=== PATIENT | female | born 1980 | race African-American/Black ===

== ENCOUNTER 2020-06-05 06:16 | Emergency (ER) | payer OTHER ==
--- OUTSIDE RECORDS SUMMARY | 2020-06-05 06:49 | XMS ---
:1980 Author Organization [facility] Support Name Relationship Address Phone UE Unavailable Unavailable Unavailable ROSARIOJAVON ZHOU PARTNER [address] [address] ADAIR MEDINA AUNT [address] [place] [address] Re-disclosure Warning The records that you are about to access may contain information from federally- assisted alcohol or drug abuse programs. If such information is present, then the following federally mandated warning applies: This information has been disclosed to you from records protected by federal confidentiality rules (42 CFR part 2). The federal rules prohibit you from making any further disclosure of this information unless further disclosure is expressly permitted by the written consent of the person to whom it pertains or as otherwise permitted by 42 CFR part 2. A general authorization for the release of medical or other information is NOT sufficient for this purpose. The Federal rules restrict any use of the information to criminally investigate or prosecute any alcohol or drug abuse patient.The records that you are about to access may contain highly sensitive health information, the redisclosure of which is protected by Article 27-F of the [facility] Public Health law. If you continue you may haveaccess to information: Regarding HIV / AIDS; Provided by facilities licensed or operated by the [facility] Office of Mental Health; or Provided by the [facility] Office for People With Developmental Disabilities. If such information is present, then the following [facility] mandated warning applies: This information has been disclosed to you from confidential records which are protected by state law. State law prohibits you from making any further disclosure of this information without the specific written consent of the person to whom it pertains, or as otherwise permitted by law. Any unauthorized further disclosure in violation of state law may result in a fine or longterm sentence or both. A general authorization for the release of medical or other information is NOT sufficient authorization for further disclosure. Insurance Providers Payer name Policy type Policy ID Covered Covered republican's Policy P brianna / Coverage republican ID relationship to Joseph Inf ormation type joseph MEDICAID [id number] SP [id number] [facility] [id number]
[2020-06-05 06:50] VITALS: TEMP 99.1; BMI 31.9
[2020-06-05] MEDS ORDERED: ACETAMINOPHEN 325 MG TABLET (FP) PO ONE (07:32)
--- NOTE | 2020-06-05 07:46 | PDOC ---
History of Present Illness - General Chief Complaint: Blood Pressure Problem Stated Complaint: BLOOD PRESSURE PROBLEM History Source: Patient Exam Limitations: No Limitations - History of Present Illness Initial Comments: Pt is a 40 yo F, with PMH of HTN (amlodipine 10 mg), hypothyroidism, who is presenting with complaints of high BP x3 days. Pt states she took her BP at home, which was much higher than her usual (up to 170 systolic). Pt states she has also had intermittent light-headedness, substernal non-radiating chest presssure, and urinary frequency. Pt states she feels these symptoms come when "my blood pressure is high". Pt has been quarantining at home with her 3 young sons, and feels more stress than usual. Pt denies any SI/HI or feeling like she cannot perform her ADLs. Pt denies any recent fevers/chills, congestion, rhinorrhea, headache, vision changes, syncope, palpitations, SOB, n ausea/vomiting, abdominal pain, dysuria/hematuria, diarrhea/constipation, or leg swelling. Allergies: NKDA PCP: Jamie [facility] physician Social: Pt denies any cigarette, alcohol, or drug use. Pt denies any recent travel or sick contacts. Surgical: no relevant history. Family: no relevant history. 06/05/20 08:29 06/05/20 08:45 Past History - Travel History Traveled outside of the country in the last 30 days: No Close contact w/someone who was outside of country & ill: No - Medical History Allergies/Adverse Reactions: Allergies Allergy/AdvReac Type Severity Reaction Status Date / Time aspirin Allergy Intermediate Rash Verified 06/05/20 08:16 Home Medications: Ambulatory Orders Amlodipine Besylate [Norvasc -] 10 mg PO DAILY 06/05/20 Ibuprofen [Motrin -] 600 mg PO PRN 06/05/20 Levothyroxine Sodium [Unithroid] 100 mcg PO DAILY 06/05/20 Asthma: No Cancer: No Cardiac Disorders: No Diabetes: No HTN: No Seizures: No Thyroid Disease: No - Reproductive History Is Patient Now?: No - Psycho-Social/Smoking History Smoking History: Never smoked Information on smoking cessation initiated: No - Substance Abuse Hx (Audit-C & DAST Scrn) How often the patient has a drink containing alcohol: Never Score: In Men: 4 or > Positive; In Women: 3 or > Positive: 0 Screen Result (Pos requires Nsg. Audit-10AR): Negative In the last yr the pt used illegal drug/Rx for NonMed reason: No Score: Yes response is considered Positive: 0 Screen Result (Positive result requires Nsg. DAST-10): Negative Review of Systems - Review of Systems Able to Perform ROS?: Yes Is the patient limited Salvadorean proficient: No Constitutional: Yes: Weight Stable. No: Chills, Diaphoresis, Fever, Loss of Appetite, Malaise, Weakness HEENTM: No: Recent change in vision, Nose Congestion, Throat Pain, Throat Swelling, Difficulty Swallowing Respiratory: No: Cough, Orthopnea, Shortness of Breath Cardiac (ROS): Yes: Chest Pain, Lightheadedness. No: Edema, Irregular Heart Rate, Palpitations, Syncope, Chest Tightness ABD/GI: No: Constipated, Diarrhea, Nausea, Poor Appetite, Poor Fluid Intake, Vomiting : Yes: Frequency. No: Burning, Dysuria, Flank Pain, Hematuria, Pain, Urgency Musculoskeletal: No: Back Pain, Muscle Pain, Muscle Weakness Integumentary: No: Rash Neurological: No: Headache, Numbness, Paresthesia, Seizure, Weakness, Unsteady Gait, Dizziness Psychiatric: No: Sleep Pattern Change, Change in Appetite Endocrine: No: Increased Urine, Change in Weight Hematologic/Lymphatic: No: Anemia, Blood Clots, Easy Bleeding, Easy Bruising All Other Systems: Reviewed and Negative *Physical Exam - Vital Signs Last Vital Signs Temp Pulse Resp BP Pulse Ox 99.1 F 101 H 18 141/98 100 06/05/20 06:36 06/05/20 06:36 06/05/20 06:36 06/05/20 06:36 06/05/20 06:36 - Physical Exam Vitals stable (HTN improved on my exam), pt afebrile. Pt in NAD, overweight body habitus. Pt alert and oriented x3. slat grader generally intact, muscular strength and sensation intact. No midline spinal tenderness, step-offs, or crepitus. Head normocephalic, atraumatic. Eyes PERRLA, EOMI. Oropharynx without erythema or exudates, no LAD b/l. No nasal congestion. Hearing intact. Clear heart sounds, S1/S2, no JVD, b/l pedal edema, or heart murmur. Clear lung sounds, no respiratory distress, wheezes, crackles, or accessory muscle use. No abdominal or CVA tenderness to palpation, no rebound, no guarding. Abdomen soft, non-distended, and with normoactive bowel sounds. Skin without jaundice or rash. 06/05/20 08:42 ED Treatment Course - LABORATORY CBC & Chemistry Diagram: 06/05/20 07:45 06/05/20 07:45 - RADIOLOGY Radiology Studies Ordered: Category Date Time Status CHEST PA & LAT [RAD] Stat Radiology 06/05/20 07:32 Ordered Medical Decision Making - Medical Decision Making Pt was seen at bedside, also will be seen by attending Dr. Campos. Pt presenting with hypertension from baseline, associated with chest pressure and light-headedness. Will evaluate for thyroid dysfunction, electrolyte abnormalities, ACS. Chest pain resolved at time of exam. Provided 650 mg PO tylenol for improvement of discomfort. Will continue to reassess pt and monitor for symptomatic improvement. ECG: NSR, intervals WNL (HR 80, AL 164, QRS 84, QTc 475). No TWIs or significant ST segment changes. No significant changes from prior ECG. 06/05/20 08:44 H/H, TSH, troponin WNL K 3.2, provided 40 mg PO Kdur Provided f/u appointment with clinic PCP. Strict return precautions provided with pt understanding. 06/05/20 09:32 Discharge - Discharge Information Problems reviewed: Yes Clinical Impression/Diagnosis: Distal paresthesia, Light headed Hypertension Qualifiers: Hypertension type: unspecified Qualified Code(s): I10 - Essential (primary) hypertension Condition: Good Disposition: HOME - Admission No - Follow up/Referral Referrals: [facility] [place] [Provider Group] - Patient Discharge Instructions Patient Printed Discharge Instructions: DI for High Blood Pressure, How to Monitor Your Blood Pressure at Home Additional Instructions: You were seen in the ER today for high blood pressure. The results of your labs and imaging today normal, except for a low potassium (3.4) which we provided in the ER. Please follow-up with your primary care doctor within 1-2 days to discuss your visit and make sure your symptoms have improved. We have also provided you referral information for our clinic. Please return to the ER if you have any worsening pain, development of fevers or chills, loss of consciousness, inability to tolerate food or fluids, or any other concerns. - Post Discharge Activity
[2020-06-05] MEDS ORDERED: ACETAMINOPHEN 325 MG TABLET (FP) ONE (08:08)
[2020-06-05 08:34] LABS: BASO % 0.7 % (0-2.0); EOS % 2.1 % (0-4.5); HEMATOCRIT 38.6 % (32.4-45.2); HEMOGLOBIN 12.9 GM/dL (10.7-15.3); LYMPH % 39.9 % (8-40); MCH 30.2 pg (25.7-33.7); MCHC 33.3 g/dl (32.0-36.0); MEAN CELL VOLUME 90.8 fl (80-96); MEAN PLT VOLUME 8.3 fl (7.5-11.1); MONO % 9.8 % (3.8-10.2); NEUT % 47.5 % (42.8-82.8); PLATELET COUNT 195 K/MM3 (134-434); RBC 4.25 M/mm3 (3.60-5.2); RDW 12.4 % (11.6-15.6); WHITE BLOOD COUNT 3.2 K/mm3 (4.0-10.0)
[2020-06-05 08:55] LABS: PH,URINE >= 9.0 (5.0-8.0); URINE APPEARANCE CLEAR; URINE BILIRUBIN NEGATIVE (NEGATIVE); URINE COLOR YELLOW; URINE GLUCOSE (UA) NEGATIVE (NEGATIVE); URINE KETONE NEGATIVE (NEGATIVE); URINE LEUK ESTERASE NEGATIVE (NEGATIVE); URINE NITRITE NEGATIVE (NEGATIVE); URINE PROTEIN NEGATIVE (NEGATIVE); URINE UROBILINOGEN 0.2 mg/dL (0.2-1.0)
[2020-06-05 09:22] LABS: ALBUMIN 3.9 g/dl (3.4-5.0); ALK PHOS 67 U/L (45-117); ANION GAP 4 MMOL/L (8-16); BILIRUBIN,TOTAL 0.7 mg/dL (0.2-1); BLOOD UREA NITROGEN 6.2 mg/dL (7-18); CALCIUM 8.9 mg/dL (8.5-10.1); CHLORIDE 105 mmol/L (98-107); CO2 29 mmol/L (21-32); CREATININE 0.7 mg/dL (0.55-1.3); GLUCOSE,RANDOM 95 mg/dL (74-106); POTASSIUM 3.4 mmol/L (3.5-5.1); SGOT/AST 14 U/L (15-37); SGPT/ALT 16 U/L (13-61); SODIUM 139 mmol/L (136-145); TOT PROT 8.8 g/dl (6.4-8.2)
[2020-06-05] MEDS ORDERED: POTASSIUM CHLORIDE TABS 20 MEQ TABLET.ER (FP) PO ONE ×2 (09:23→09:26)
--- NOTE | 2020-06-05 09:28 | PDOC ---
Attending Attestation - Resident Resident Name: VicentaMikayla - ED Attending Attestation I have performed the following: I have examined & evaluated the patient, The case was reviewed & discussed with the resident, I agree w/resident's findings & plan - HPI HPI: 06/05/20 09:23 40-year-old female with history of well-controlled hypertension presents with nonspecific symptoms since yesterday. Patient reports the primary reason for the ED visit is a tingling sensation in her chest/epigastric area, comes and goes randomly without any associated shortness of breath/lightheadedness/nausea/palpitations. No history of exertional chest pain or limitations, no recent infectious complaints, felt generally weak overnight and had another tingling sensation in her chest this morning so she presents for evaluation. No smoking history, never had stress test, no family or personal history of DVT/PE, no other complaints. - Physicial Exam PE: 06/05/20 09:24 Vital signs are within normal limits, temp 99.1, O2 sat normal Well-appearing seated comfortably in stretcher speaking full sentences Oropharynx is clear Heart is regular, lungs are clear Abdomen benign without epigastric tenderness No edema or calf tenderness - Medical Decision Making 06/05/20 09:24 40-year-old female with nonspecific symptoms of generalized weakness and chest tingling, atypical for ACS or PE, vital signs are normal. Question metabolic versus infectious, viral etiology? Stressors at home, but no acute psych issues. Labs, urinalysis EKG, chest x-ray Disposition accordingly Heart Score/ECG Review #1 ECG reviewed & interpreted by me at: 07:42 General ECG Interpretation: Sinus Rhythm, Normal Rate (80), Normal Intervals (qtc 475), No acute ischemic changes Discharge - Discharge Information Problems reviewed: Yes Clinical Impression/Diagnosis: Palpitation Condition: Fair - Follow up/Referral - Patient Discharge Instructions - Post Discharge Activity
[2020-06-05 09:52] VITALS: BP 133/96; PULSE 90
--- NOTE | 2020-06-05 09:54 | EKG ---
Test Reason : Blood Pressure : / mmHG Vent. Rate : 080 BPM Atrial Rate : 080 BPM P-R Int : 164 ms QRS Dur : 084 ms QT Int : 412 ms P-R-T Axes : 054 022 010 degrees QTc Int : 475 ms NORMAL SINUS RHYTHM NORMAL ECG NO PREVIOUS ECGS AVAILABLE Confirmed by Mino Dillard MD ([id number]) on 06/05/2020 9:53:17 AM Referred By: Confirmed By:Mino Dillard MD
== END 2020-06-05 09:53 | disposition home or self-care (01) ==
LOC: JER 06:16
DX: R00.2 Palpitations (principal); I10 Essential (primary) hypertension
CPT/HCPCS: 36415; 71046-TC-FY; 80053; 81003; 84443; 84484; 84703; 85025; 87086; 93005; 93010; 99285-25

== ENCOUNTER 2022-06-18 05:23 | Emergency (ER) | payer OTHER ==
[2022-06-18 05:27] VITALS: BMI 30.9
[2022-06-18 06:34] LABS: BASO % 0.6 % (0-2.0); EOS % 3.1 % (0-4.5); HEMATOCRIT 38.9 % (32.4-45.2); HEMOGLOBIN 12.9 GM/dL (10.7-15.3); LYMPH % 42.5 % (8-40); MCH 30.6 pg (25.7-33.7); MCHC 33.2 g/dl (32.0-36.0); MEAN PLT VOLUME 8.2 fl (7.5-11.1); MONO % 8.5 % (3.8-10.2); NEUT % 45.3 % (42.8-82.8); PLATELET COUNT 179 10^3/uL (134-434); RBC 4.22 M/mm3 (3.60-5.2); RDW 12.2 % (11.6-15.6); WHITE BLOOD COUNT 3.4 K/mm3 (4.0-10.0)
[2022-06-18 06:51] LABS: INR 1.18 (0.83-1.09); PROTHROMBIN TIME (PATIENT) 13.6 SEC (9.7-13.0)
[2022-06-18 06:54] LABS: ACTIVATED PTT 29.5 SECONDS (25.2-36.5)
[2022-06-18 06:57] LABS: ALBUMIN 3.7 g/dl (3.4-5.0); BLOOD UREA NITROGEN 9.2 mg/dL (7-18); CALCIUM 8.7 mg/dL (8.5-10.1)
[2022-06-18 07:00] LABS: CREATININE 0.7 mg/dL (0.55-1.3)
[2022-06-18 07:02] LABS: BILIRUBIN,TOTAL 0.4 mg/dL (0.2-1); TOT PROT 8.2 g/dl (6.4-8.2)
[2022-06-18 08:57] VITALS: BP 137/92; PULSE 65; RESP 16; TEMP 98.2
[2022-06-18] MEDS ORDERED: ACETAMINOPHEN 325 MG TABLET (FP) PO ONE (09:08)
[2022-06-18] MEDS ORDERED: ACETAMINOPHEN 325 MG TABLET (FP) ONE (09:11)
== END 2022-06-18 09:15 | disposition home or self-care (01) ==
LOC: JER 05:23
DX: R07.9 Chest pain, unspecified (principal)
CPT/HCPCS: 36415; 71045-TC-FY; 80053; 84443; 84484; 84703; 85025; 85379; 85610; 85730; 93005; 93010; 99285-25

== ENCOUNTER 2023-02-12 09:38 | Emergency (ER) | payer OTHER ==
[2023-02-12 09:46] VITALS: BP 132/88; PULSE 89; RESP 17; TEMP 97.6; BMI 30.5
[2023-02-12] MEDS ORDERED: KETOROLAC TROMETHAMINE 30 MG/1 ML VIAL IM ONE (10:20)
[2023-02-12] MEDS ORDERED: METHOCARBAMOL 500 MG TABLET PO ONE (10:21)
[2023-02-12] MEDS ORDERED: LIDOCAINE 5% TOPICAL PATCH TP ONE (10:21)
[2023-02-12] MEDS ORDERED: LIDOCAINE 5% TOPICAL PATCH ONE (10:25)
[2023-02-12] MEDS ORDERED: KETOROLAC TROMETHAMINE 30 MG/1 ML VIAL ONE (10:26)
[2023-02-12] MEDS ORDERED: METHOCARBAMOL 500 MG TABLET ONE (10:26)
[2023-02-12 11:01] LABS: PH,URINE 6.5 (5.0-8.0); URINE APPEARANCE CLEAR; URINE BILIRUBIN NEGATIVE (NEGATIVE); URINE COLOR YELLOW; URINE GLUCOSE (UA) NEGATIVE (NEGATIVE); URINE KETONE NEGATIVE (NEGATIVE); URINE LEUK ESTERASE NEGATIVE (NEGATIVE); URINE NITRITE NEGATIVE (NEGATIVE); URINE PROTEIN NEGATIVE (NEGATIVE); URINE UROBILINOGEN 0.2 mg/dL (0.2-1.0)
[2023-02-12 11:13] LABS: HCG,QUALITATIVE URINE Negative
== END 2023-02-12 11:44 | disposition home or self-care (01) ==
LOC: JERFT 09:38
PROC: 3E0233Z Introduction of Anti-inflammatory into Muscle, Percutaneous Approach (ICD-10-PCS; principal; 2023-02-12)
DX: M54.50 Low back pain, unspecified (principal)
CPT/HCPCS: 81003; 84703; 87086; 99284-25

== ENCOUNTER 2023-03-16 06:14 | Emergency (ER) | payer OTHER ==
[2023-03-16 06:29] VITALS: BP 156/100; PULSE 76; RESP 18; TEMP 97.6; BMI 30.5
[2023-03-16] MEDS ORDERED: MAG HYDROX/AL HYDROX/SIMETH 30 ML UNIT-DOSE CUP PO ONE (07:25)
[2023-03-16] MEDS ORDERED: ACETAMINOPHEN 325 MG TABLET (FP) PO ONE (07:25)
[2023-03-16] MEDS ORDERED: FAMOTIDINE 20 MG/50 ML IVPB 20 MG/50 ML MG IVPB ONE ×2 (07:25→07:36)
[2023-03-16] MEDS ORDERED: ACETAMINOPHEN 325 MG TABLET (FP) ONE (07:35)
[2023-03-16] MEDS ORDERED: MAG HYDROX/AL HYDROX/SIMETH 30 ML UNIT-DOSE CUP ONE (07:35)
[2023-03-16 08:10] LABS: BASO % 0.6 % (0-2.0); EOS % 2.5 % (0-4.5); HEMATOCRIT 37.4 % (32.4-45.2); HEMOGLOBIN 12.3 GM/dL (10.7-15.3); LYMPH % 29.2 % (8-40); MCH 30.3 pg (25.7-33.7); MCHC 32.7 g/dl (32.0-36.0); MEAN CELL VOLUME 92.6 fl (80-96); MEAN PLT VOLUME 8.6 fl (7.5-11.1); MONO % 10.2 % (3.8-10.2); NEUT % 57.5 % (42.8-82.8); PLATELET COUNT 160 10^3/uL (134-434); RBC 4.04 M/mm3 (3.60-5.2); RDW 13.2 % (11.6-15.6); WHITE BLOOD COUNT 5.1 K/mm3 (4.0-10.0)
[2023-03-16 08:19] LABS: POTASSIUM 3.7 mmol/L (3.5-5.1)
[2023-03-16 08:20] LABS: CALCIUM 8.5 mg/dL (8.5-10.1)
[2023-03-16 08:21] LABS: ALBUMIN 3.5 g/dl (3.4-5.0)
[2023-03-16 08:24] LABS: CREATININE 0.7 mg/dL (0.55-1.3)
[2023-03-16 08:25] LABS: BILIRUBIN,TOTAL 0.6 mg/dL (0.2-1); TOT PROT 7.9 g/dl (6.4-8.2)
== END 2023-03-16 10:33 | disposition home or self-care (01) ==
LOC: JER 06:14
PROC: 3E033GC Introduction of Other Therapeutic Substance into Peripheral Vein, Percutaneous Approach (ICD-10-PCS; principal; 2023-03-16)
DX: R07.89 Other chest pain (principal); E07.89 Other specified disorders of thyroid
CPT/HCPCS: 36415; 71046-TC-FY; 80053; 83690; 84436; 84439; 84443; 84480; 84481; 84484; 84703; 85025; 93005; 93010; 99285-25

== ENCOUNTER 2023-08-27 11:38 | Emergency (ER) | payer OTHER ==
[2023-08-27 11:43] VITALS: BP 120/73; PULSE 104; RESP 18; TEMP 101; BMI 29.7
[2023-08-27] MEDS ORDERED: IBUPROFEN 600 MG TABLET (FP) PO ONE ×2 (13:56→13:59)
[2023-08-27] MEDS ORDERED: ACETAMINOPHEN 500 MG TABLET (FP) PO ONE (13:56)
[2023-08-27] MEDS ORDERED: ACETAMINOPHEN 500 MG TABLET (FP) ONE (13:59)
== END 2023-08-27 14:31 | disposition home or self-care (01) ==
LOC: JER 11:38 → JERFT 11:38
DX: R51.9 Headache, unspecified (principal); R50.9 Fever, unspecified; J02.9 Acute pharyngitis, unspecified; R05.9 Cough, unspecified; M79.10 Myalgia, unspecified site; J06.9 Acute upper respiratory infection, unspecified; Z20.822 Contact with and (suspected) exposure to COVID-19
CPT/HCPCS: 0241U-QW; 99283-25

== ENCOUNTER 2024-02-27 12:59 | Emergency (ER) | payer SELFPAY ==
[2024-02-27 13:07] VITALS: BP 126/85; PULSE 81; RESP 20; TEMP 98.5; BMI 29.8
[2024-02-27] MEDS ORDERED: DEXAMETHASONE SOD PHOSPHATE 10 MG/1 ML VIAL ONE (13:46)
[2024-02-27] MEDS ORDERED: KETOROLAC TROMETHAMINE 30 MG/1 ML VIAL ONE (13:46)
[2024-02-27] MEDS: KETOROLAC TROMETHAMINE 30 MG/1 ML VIAL IM ONE (13:51)
[2024-02-27] MEDS: DEXAMETHASONE SOD PHOSPHATE 10 MG/1 ML VIAL IM ONE (13:52)
== END 2024-02-27 14:37 | disposition home or self-care (01) ==
LOC: JERFT 12:59
PROC: 3E023GC Introduction of Other Therapeutic Substance into Muscle, Percutaneous Approach (ICD-10-PCS; principal; 2024-02-27)
PROC: 3E0133Z Introduction of Anti-inflammatory into Subcutaneous Tissue, Percutaneous Approach (ICD-10-PCS; 2024-02-27)
DX: M54.31 Sciatica, right side (principal); M25.551 Pain in right hip; M25.552 Pain in left hip
CPT/HCPCS: 73521-TC-FY; 99284-25; J1100